=== PATIENT | female | born 1965 ===

== ENCOUNTER 2018-05-01 11:03 | Emergency (ER) | payer MEDICARE ==
[2018-05-01 11:51] VITALS: BP 103/62
[2018-05-01] MEDS ORDERED: Ibuprofen TAB* 600 MG PO ONE (12:01)
--- NOTE | 2018-05-01 12:02 | UC ---
[facility] H[facility] - HPI Summary HPI Summary: Patient has a history of issues with TMJ. It usually flares and then calms down very quickly. This episode patient has had pain for 3 days--unsure if she grinds her teeth does have an oral appliance she wears for the pain - History of Current Complaint Chief Complaint: UCDentalProblem Stated Complaint: JAW PAIN Time Seen by Provider: 05/01/18 11:54 Hx Obtained From: Patient Hx Last Menstrual Period: 04/24/18 ?: No Onset/Duration: Sudden Onset, Lasting Days - 3, Still Present Pain Intensity: 5 Pain Scale Used: 0-10 Numeric Aggravating Factor(s): Chewing Alleviating Factor(s): Nothing Related History: TMJ Dysfunction - Allergies/Home Medications Allergies/Adverse Reactions: Allergies Allergy/AdvReac Type Severity Reaction Status Date / Time No Known Allergies Allergy Verified 05/01/18 12:02 Home Medications: Home Medications Famotidine TAB* [Pepcid 20 MG TAB*] 20 mg PO DAILY 05/01/18 [History Confirmed 05/01/18] Levothyroxine TAB* [Synthroid 75 MCG TAB*] 100 mcg PO DAILY 05/01/18 [History Confirmed 05/01/18] Loratadine [Claritin] 10 mg PO DAILY 05/01/18 [History Confirmed 05/01/18] PMH/Surg Hx/FS Hx/Imm Hx Previously Healthy: No Endocrine History: Hypothyroidism GI/ History: Gastroesophageal Reflux - Surgical History Surgical History: None - Family History Known Family History: Positive: None - Social History Occupation: Disabled Lives: With Family Alcohol Use: Rare Substance Use Type: None Smoking Status (MU): Never Smoked Tobacco Review of Systems Constitutional: Negative Skin: Negative Eyes: Negative ENT: Negative Respiratory: Negative Cardiovascular: Negative Gastrointestinal: Negative Genitourinary: Negative Motor: Negative Neurovascular: Negative Musculoskeletal: Arthralgia - right TMJ pain Neurological: Negative Psychological: Negative Is Patient Immunocompromised?: No All Other Systems Reviewed And Are Negative: Yes Physical Exam Triage Information Reviewed: Yes Appearance: Well-Appearing, No Pain Distress, Well-Nourished Vital Signs: Initial Vital Signs Temp 96 F 05/01/18 11:47 Pulse 66 05/01/18 11:47 Resp 16 05/01/18 11:47 BP 103/62 05/01/18 11:47 Pulse Ox 100 05/01/18 11:47 Vital Signs Reviewed: Yes Eye Exam: Normal Eyes: Positive: Conjunctiva Clear ENT Exam: Normal ENT: Positive: Normal ENT inspection, Hearing grossly normal, Pharynx normal, TMs normal. Negative: Nasal congestion, Trismus, Muffled voice, Hoarse voice, Sinus tenderness, Uvula midline Dental Exam: Normal Neck exam: Normal Neck: Positive: Supple, Nontender Respiratory Exam: Normal Respiratory: Positive: Chest non-tender, Lungs clear, Normal breath sounds, No respiratory distress, No accessory muscle use Cardiovascular Exam: Normal Cardiovascular: Positive: RRR, No Murmur, Pulses Normal, Brisk Capillary Refill Musculoskeletal Exam: Other Musculoskeletal: Positive: Strength Intact, No Edema, ROM Limited @ - limited ROM in right TMJ due to pain Neurological Exam: Normal Neurological: Positive: Alert, Muscle Tone Normal Psychological Exam: Normal Skin Exam: Normal Diagnostics - Radiology No standard instances Xray Interpretation: Positive (See Comments) Radiology Interpretation Completed By: Radiologist - Patient Name: DIONY HATFIELD Medical Record#: [id number] Ordering Physician: Chrissy Rayo OPEN DEVELOPER OPERATOR Acct.#: [id number] : 1965 Age: 53 Sex: F Location: [facility] Exam Date: 05/01/18 1201 ADM Status: REG ER Order Information: MANDIBLE COMPLETE Accession Number: [id number] CPT : 94594 HISTORY: TMJ pain right COMPARISONS: None VIEWS: 4, [place], [place], and bilateral oblique views of the mandible with the jaw closed FINDINGS: BONE DENSITY: There is diffuse osteopenia. BONES: There is cystic change to the head of the condylar process of the mandible on the right. JOINTS: There is no arthropathy. ALIGNMENT: There is no dislocation. SOFT TISSUES: Unremarkable. OTHER FINDINGS : None. IMPRESSION: 1. OSTEOPENIA. 2. THERE IS CYSTIC CHANGE TO THE HEAD OF THE CONDYLAR PROCESS OF THE MANDIBLE ON THE RIGHT WHICH MAY REFLECT SUBCHONDRAL CYST FORMATION IN THE SETTING OF TEMPOROMANDIBULAR OSTEOARTHRITIS, THOUGH THIS IS INCOMPLETELY EVALUATED ON THE CURRENT EXAMINATION. RECOMMEND CONSIDERATION OF FURTHER EVALUATION WITH CROSS SECTIONAL IMAGING, INCLUDING MRI OF THE TEMPOROMANDIBULAR JOINTS <Electronically signed by Reynaldo Ellis MD in [place]> 05/01/18 1235 Dictated By: Reynaldo Ellis MD Dictated Date/Time: 05/01/18 1235 Transcribed Date/Time: 05/01/18 1232 Copy to: CC:Chrissy Rayo OPEN DEVELOPER OPERATOR; No Primary Care Phys,NOPCP; Jakob Sky MD Imaging - [facility] Imaging - [facility] Imaging - [facility] [address] [place] [id number] [address] [address] ph [phone]) ph [phone]) ph ([phone]) 1 of 1 Dental Complaint Course/Dx - Course Course Of Treatment: heat/ice for pain, nsaids muscle relaxors, follow with pcp for further evaluation and definative dx this week - Differential Dx/Diagnosis Provider Diagnoses: Right TMJ pain , subcondal cyst right mandable Discharge - Sign-Out/Discharge Documenting (check all that apply): Discharge/Admit/Transfer - Discharge Plan Condition: Stable Disposition: HOME Prescriptions: Cyclobenzaprine TAB* [Flexeril 10 MG TAB*] 10 mg PO TID PRN #15 tab PRN Reason: muscle tightness Ibuprofen TAB* [Motrin TAB* 600 MG] 600 mg PO Q6H PRN #30 tab PRN Reason: pain Patient Education Materials: Temporomandibular Disorder (ED) Referrals: [facility] [Outside] - 1 Week [facility]FERRAL [Outside] - 1 Week - Billing Disposition and Condition Condition: STABLE Disposition: Home
--- NOTE | 2018-05-01 12:38 | RAD ---
HISTORY: TMJ pain right COMPARISONS: None VIEWS: 4, Alona, [place], and bilateral oblique views of the mandible with the jaw closed FINDINGS: BONE DENSITY: There is diffuse osteopenia. BONES: There is cystic change to the head of the condylar process of the mandible on the right. JOINTS: There is no arthropathy. ALIGNMENT: There is no dislocation. SOFT TISSUES: Unremarkable. OTHER FINDINGS: None. IMPRESSION: 1. OSTEOPENIA. 2. THERE IS CYSTIC CHANGE TO THE HEAD OF THE CONDYLAR PROCESS OF THE MANDIBLE ON THE RIGHT WHICH MAY REFLECT SUBCHONDRAL CYST FORMATION IN THE SETTING OF TEMPOROMANDIBULAR OSTEOARTHRITIS, THOUGH THIS IS INCOMPLETELY EVALUATED ON THE CURRENT EXAMINATION. RECOMMEND CONSIDERATION OF FURTHER EVALUATION WITH CROSS SECTIONAL IMAGING, INCLUDING MRI OF THE TEMPOROMANDIBULAR JOINTS
== END 2018-05-01 13:03 | disposition home or self-care (01) ==
LOC: UCEAST 11:03
DX: M27.40 Unspecified cyst of jaw (principal); M85.88 Other specified disorders of bone density and structure, other site; E03.9 Hypothyroidism, unspecified; K21.9 Gastro-esophageal reflux disease without esophagitis
CPT/HCPCS: 70110; 99202; A9270-GY; G0463